=== PATIENT | female | born 1990 | race Caucasian/White ===

== ENCOUNTER 2017-07-26 08:00 | Outpatient (CLI) | payer MEDICAID ==
[2017-07-26 12:38] LABS: BASOPHILS # (AUTO) 0.1 10^3/uL (0.0-0.1); BASOPHILS % (AUTO) 0.8 %; EOSINOPHILS # (AUTO) 0.3 10^3/uL (0.0-0.7); EOSINOPHILS % (AUTO) 3.1 %; HGB - HEMOGLOBIN 12.9 g/dL (12.0-16.0); LYMPHOCYTES # (AUTO) 2.7 10^3/uL (1.5-3.5); LYMPHOCYTES % (AUTO) 25.4 %; MEAN CORPUSCULAR HEMOGLOBIN 30.4 pg (27.0-31.0); MEAN CORPUSCULAR HGB CONC 34.3 g/dL (32.0-36.0); MEAN CORPUSCULAR VOLUME 88.5 fL (81.0-99.0); MEAN PLATELET VOLUME 8.2 fL (7.9-10.8); MONOCYTES # (AUTO) 0.5 10^3/uL (0.0-1.0); MONOCYTES % (AUTO) 4.6 %; NEUTROPHILS # (AUTO) 6.9 10^3/uL (1.5-6.6); NEUTROPHILS % (AUTO) 66.1 %; PLT - PLATELET COUNT 367 10^3/uL (130-450); RED BLOOD COUNT 4.25 10^6/uL (4.20-5.40); RED CELL DISTRIBUTION WIDTH 12.2 % (12.0-15.0); WHITE BLOOD COUNT 10.5 x10^3/uL (4.8-10.8)
[2017-07-26 13:00] LABS: ALBUMIN 3.9 g/dL (3.2-5.5); ALBUMIN/GLOBULIN RATIO 1.1 (1.0-2.2); ALKALINE PHOSPHATASE 47 IU/L (42-121); ALT ALANINE AMINOTRANSFERASE 44 IU/L (10-60); AST ASPARTATE AMINOTRANSFERASE 38 IU/L (10-42); BILIRUBIN,TOTAL 0.6 mg/dL (0.2-1.0); BUN - BLOOD UREA NITROGEN 15 mg/dL (6-20); CALCIUM 9.2 mg/dL (8.5-10.3); CARBON DIOXIDE - CO2 25 mmol/L (21-32); CHLORIDE 104 mmol/L (101-111); CHOL/HDL RATIO 3.4 (<4.4); CHOLESTEROL 181 mg/dL; CREATININE 0.8 mg/dL (0.4-1.0); GFR - MDRD 86 (>89); GLUCOSE 126 mg/dL (70-100); HDL CHOLESTEROL 54 mg/dL; LDL CHOLESTEROL,CALCULATED 113 mg/dL; LDL/HDL RATIO 2.1 (<4.4); SODIUM 139 mmol/L (135-145); TOTAL PROTEIN 7.5 g/dL (6.7-8.2); VLDL CHOLESTEROL 14 mg/dL
[2017-07-26 13:04] LABS: THYROID STIMULATING HORMONE 2.7 uIU/mL (0.34-5.60)
[2017-07-26 13:32] LABS: FOLLICLE STIMULATING HORMONE 4.93 mIU/mL
[2017-07-26 13:33] LABS: LUTEINIZING HORMONE 5.76 mIU/mL
[2017-07-26 14:16] LABS: HCG,QUALITATIVE BLOOD NEGATIVE
== END 2017-07-26 08:01 | disposition home or self-care (01) ==
LOC: LAB.N 08:00
PROVIDERS: ATTEND Nurse Practitioner Gerontology
DX: Z13.9 Encounter for screening, unspecified (principal); N91.2 Amenorrhea, unspecified
CPT/HCPCS: 36415; 80053; 80061; 82670; 83001; 83002; 84443; 84703; 85025

== ENCOUNTER 2017-09-06 08:00 | Outpatient (CLI) | payer MEDICAID ==
[2017-09-06 12:54] LABS: THYROID STIMULATING HORMONE 3.87 uIU/mL (0.34-5.60)
[2017-09-06 13:00] LABS: PROLACTIN 13.9 ng/mL
[2017-09-06 13:14] LABS: HB2 TOTAL 14.1 g/dL; HEMOGLOBIN A1C 0.59 g/dL
== END 2017-09-06 08:01 | disposition home or self-care (01) ==
LOC: LAB.N 08:00
PROVIDERS: ATTEND Obstetrics & Gynecology
DX: N91.2 Amenorrhea, unspecified (principal)
CPT/HCPCS: 36415; 82626; 82947; 83036; 84146; 84443; 84702

== ENCOUNTER 2017-09-15 18:52 | Outpatient (CLI) | payer MEDICAID ==
--- NOTE | 2017-09-16 11:08 | Ultrasound Report ---
PELVIC ULTRASOUND: 09/15/2017 CLINICAL INDICATION: Leiomyoma. COMPARISON: 04/20/2016. TECHNIQUE: Transabdominal pelvic ultrasound performed for global evaluation. Transvaginal pelvic ultrasound performed for detailed evaluation. Real-time scanning performed and static images obtained. FINDINGS: The uterus is anteverted, measuring 11.1 x 5.7 x 4.2 cm. The endometrial echo complex measures 13 mm. No focal myometrial lesion is seen. The ovaries are normal, with the right measuring 3.2 x 2.1 x 2.0 cm and the left measuring 2.8 x 2.7 x 1.7 cm. No free fluid is present. IMPRESSION: INTERVAL REMOVAL OF IUD FROM PREVIOUS PELVIC ULTRASOUND OF 2015. NO LEIOMYOMAS IDENTIFIED. NORMAL PELVIC ULTRASOUND. TD: 09/16/2017 11:07 [email or web address]
== END 2017-09-15 18:53 | disposition home or self-care (01) ==
LOC: DI 18:52
PROVIDERS: ATTEND Obstetrics & Gynecology
DX: D25.9 Leiomyoma of uterus, unspecified (principal)
CPT/HCPCS: 76830; 76856

== ENCOUNTER 2017-09-29 13:55 | Outpatient (CLI) | payer MEDICAID | END 2017-09-29 13:56 | disposition home or self-care (01) | LOC: LAB.N 13:55 | PROVIDERS: ATTEND Obstetrics & Gynecology | DX: N91.2 Amenorrhea, unspecified (principal) | CPT/HCPCS: 36415; 83001; 84403 ==

== ENCOUNTER 2018-09-15 13:00 | Emergency (ER) | payer OTHER, MEDICAID ==
[2018-09-15 13:20] VITALS: BP 134/90
--- NOTE | 2018-09-15 13:25 | ED Physician Documentation ---
History of Present Illness - Stated complaint Stated Complaint: R HAND INJ - Chief complaint Chief Complaint: Ext Problem - History obtained from History obtained from: Patient - History of Present Illness Timing: How many days ago (2) Pain level max: 5 Pain level now: 4 - Additonal information Additional information: 19-year-old female with right hand and thumb pain for the past 2 days. No known injury. She states she does work 2 jobs. 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 She does not recall any injury, other than a just started hurting. Has not taken anything for the pain. Better with rest and worse with movement and twisting. She is left-handed. 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 - Present Medications Home Medications: Ambulatory Orders Medication Instructions Recorded Confirmed No Known Home Medications 09/15/18 09/15/18 - Allergies Allergies/Adverse Reactions: Allergies Allergy/AdvReac Type Severity Reaction Status Date / Time No Known Drug Allergies Allergy Verified 03/18/16 16:13 - Social History Does the pt smoke?: Yes Smoking Status: Current every day smoker Does the pt drink ETOH?: No Does the pt have substance abuse?: No - Immunizations Immunizations are current?: No Immunizations: TDAP current <10years PD ED PE NORMAL - Vitals Vital signs reviewed: Yes - General General: Alert and oriented X 3, No acute distress - Derm Derm: Warm and dry - Extremities Extremities: Other (Right hand, wrist and forearm - Full range of motion present without pain, Except for extension of the thumb. Neurovascular intact. No tenderness on examination. No swelling. No bruising.) - Neuro Neuro: Alert and oriented X 3 Results - Vitals Vitals: Vital Signs - 24 hr 09/15/18 13:19 Temperature 36.3 C L Heart Rate 94 Respiratory 16 Rate Blood Pressure 134/90 H O2 Saturation 99 Oxygen O2 Source Room air PD MEDICAL DECISION MAKING - ED course Complexity details: considered differential, d/w patient ED course: 19-year-old female with what appears to be a strain of the right hand, likely the right thumb. No bony tenderness. No evidence of fracture, dislocation, carpal tunnel syndrome. Neurovascularly intact. Placed in a Velcro thumb spica splint for comfort. Patient counseled regarding signs and symptoms for which I believe and urgent re-evaluation would be necessary. Patient with good understanding of and agreement to plan and is comfortable going home at this time This document was made in part using voice recognition software. While efforts are made to proofread this document, sound alike and grammatical errors may occur. Departure - Departure Disposition: 01 Home, Self Care Clinical Impression: Strain of thumb, right Condition: Good Instructions: ED Strain Muscle Ext Follow-Up: Keila Eller ARNP [Primary Care Provider] - Within 1 week Comments: Wear the splint for the next week. Follow-up with your doctor for repeat evaluation in a week. You can use Motrin or Tylenol as needed for pain. Forms: Activity restrictions
== END 2018-09-15 13:40 | disposition home or self-care (01) ==
LOC: ED 13:00
DX: S66.911A Strain of unspecified muscle, fascia and tendon at wrist and hand level, right hand, initial encounter (principal); X58.XXXA Exposure to other specified factors, initial encounter; Y93.F9 Activity, other caregiving; Y99.0 Civilian activity done for income or pay; F17.200 Nicotine dependence, unspecified, uncomplicated
CPT/HCPCS: 99282; 99283

== ENCOUNTER 2018-10-17 08:34 | Outpatient (CLI) | payer MEDICAID ==
[2018-10-17 09:50] LABS: HB2 TOTAL 13.3 g/dL; HEMOGLOBIN A1C 0.68 g/dL; HEMOGLOBIN A1C % 6.8 % (4.6-6.2)
== END 2018-10-17 08:35 | disposition home or self-care (01) ==
LOC: LAB 08:34
PROVIDERS: ATTEND Nurse Practitioner Obstetrics & Gynecology
DX: E66.9 Obesity, unspecified (principal); N91.2 Amenorrhea, unspecified
CPT/HCPCS: 36415; 82951; 83036; 84443

== ENCOUNTER 2018-10-24 07:08 | Outpatient (CLI) | payer MEDICAID ==
--- NOTE | 2018-10-24 12:48 | Ultrasound Report ---
Reason: AMENORRHEA Procedure Date: 10/24/2018 Accession Number: [id number] / [id number] Procedure: US - Pelvic w/Transvaginal CPT Code: FULL RESULT: EXAM: PELVIC ULTRASOUND EXAM DATE: 10/24/2018 07:17 AM. CLINICAL HISTORY: Amenorrhea. COMPARISON: PELVIC W/TRANSVAGINAL 09/15/2017 7:03 PM. TECHNIQUE: Realtime transabdominal pelvic scan performed to identify the uterus and adnexa and as an overview of other pelvic structures, followed by transvaginal scan to provide greater detail of the uterus and adnexa, with static image documentation. FINDINGS: Uterus: 11.8 x 4.2 x 6.5 cm, volume 168.5 cc. Anteverted position. Normal overall size and echotexture. Masses: None. Endometrium: 15 mm. Upper limits of normal in thickness. Cervix: Unremarkable. Right Ovary: 3.5 x 2.4 x 2.2 cm, volume 9.7 cc. Normal echotexture and blood flow. Left Ovary: 3.4 x 2.1 x 1.5 cm, volume 5.6 cc. Left ovary is only seen transabdominally. Normal echotexture and blood flow. Free Fluid: None. Other: None. IMPRESSION: Endometrial stripe thickness is at upper limits of normal at 15 mm (presumed secretory phase). Otherwise normal pelvic ultrasound. RADIA
== END 2018-10-24 07:09 | disposition home or self-care (01) ==
LOC: DI 07:08
PROVIDERS: ATTEND Nurse Practitioner Obstetrics & Gynecology
DX: N91.2 Amenorrhea, unspecified (principal)
CPT/HCPCS: 76830; 76856

== ENCOUNTER 2019-06-30 22:06 | Emergency (ER) | payer MEDICAID ==
--- NOTE | 2019-06-30 23:30 | ED Physician Documentation ---
History of Present Illness - Stated complaint Stated Complaint: R WRIST/ARM PX - Chief complaint Chief Complaint: Ext Problem - History obtained from History obtained from: Patient - History of Present Illness Timing: How many weeks ago (a few weeks, per patient) Pain level now: 3 Improved by: rest Worsened by: movement, particularly pronation - Additonal information Additional information: c/o few weeks of gradual onset right wrist pain radiating to hand (all fingers) and up forearm. worse with movement. denies injury. evaluated for similar symptoms in September in this ED. patient is left hand dominant. Review of Systems Skin: denies: Rash Musculoskeletal: reports: Extremity pain, Joint pain. 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 - Present Medications Home Medications: Ambulatory Orders Medication Instructions Recorded Confirmed Naproxen 500 mg PO BID PRN #20 tablet 06/30/19 - Allergies Allergies/Adverse Reactions: Allergies Allergy/AdvReac Type Severity Reaction Status Date / Time No Known Drug Allergies Allergy Verified 06/30/19 22:12 - Social History Does the pt smoke?: Yes Smoking Status: Current every day smoker Does the pt drink ETOH?: No Does the pt have substance abuse?: No - Immunizations Immunizations are current?: Yes Immunizations: TDAP current <10years - POLST Patient has POLST: No PD ED PE NORMAL - Vitals Vital signs reviewed: Yes - General General: Alert and oriented X 3, No acute distress, Well developed/nourished - Derm Derm: Normal color, No rash - Extremities Extremities: No tenderness to palpate, No edema - Neuro Neuro: No motor deficit, No sensory deficit PD ED PE EXPANDED - Extremities Extremities: No: Tenderness, Limited ROM (ROM intact but pain elicited with supination right FA.), Swelling Results - Vitals Vitals: Oxygen O2 Source Room air - Labs Labs: Laboratory Tests 07/01/19 00:00 POC Whole Bld Glucose 104 H PD MEDICAL DECISION MAKING - ED course Complexity details: considered differential, d/w patient ED course: No injury. Suspect overuse/tendonitis. Distribution of symptoms does not suggest carpal tunnel syndrome. Plan is analgesics and rest. She still has splint from ED visit earlier this year and I encouraged her to use it while taking time off from work to see if these measures result in improvement (which would support the diagnosis of overuse and/or tendonitis), and also to follow up with PMD Departure - Departure Disposition: 01 Home, Self Care Clinical Impression: Wrist strain Condition: Good Instructions: Tendonitis and Tenosynovitis Follow-Up: Keila Eller ARNP [Primary Care Provider] - Prescriptions: Naproxen 500 mg PO BID PRN #20 tablet PRN Reason: Pain Forms: Activity restrictions Discharge Date/Time: 07/01/19 00:22
[2019-06-30] MEDS ORDERED: NAPROXEN 250 MG TABLET PO STA (23:47)
[2019-07-01 00:22] VITALS: BP 146/104
== END 2019-07-01 00:22 | disposition home or self-care (01) ==
LOC: ED 22:06
DX: S66.911A Strain of unspecified muscle, fascia and tendon at wrist and hand level, right hand, initial encounter (principal); X58.XXXA Exposure to other specified factors, initial encounter; E11.9 Type 2 diabetes mellitus without complications; F17.200 Nicotine dependence, unspecified, uncomplicated
CPT/HCPCS: 99282; 99283; A9270

== ENCOUNTER 2019-07-05 11:15 | Outpatient (CLI) | payer MEDICAID ==
[2019-07-05 19:08] LABS: HB2 TOTAL 11.8 g/dL; HEMOGLOBIN A1C 0.62 g/dL
== END 2019-07-05 23:59 | disposition home or self-care (01) ==
LOC: LAB.N 11:15
PROVIDERS: ATTEND Nurse Practitioner Gerontology
DX: E11.65 Type 2 diabetes mellitus with hyperglycemia (principal)
CPT/HCPCS: 36415; 83036

== ENCOUNTER 2022-06-23 11:09 | Outpatient (CLI) | payer BC ==
[2022-06-23 11:34] LABS: HCT - HEMATOCRIT 36.1 % (37.0-47.0); HGB - HEMOGLOBIN 11.5 g/dL (12.0-16.0); MEAN CORPUSCULAR HEMOGLOBIN 26.7 pg (27.0-31.0); MEAN CORPUSCULAR HGB CONC 31.9 g/dL (32.0-36.0); MEAN CORPUSCULAR VOLUME 83.8 fL (81.0-99.0); MEAN PLATELET VOLUME 9.6 fL (7.9-10.8); RED BLOOD COUNT 4.31 10^6/uL (4.20-5.40); RED CELL DISTRIBUTION WIDTH 12.8 % (12.0-15.0); WHITE BLOOD COUNT 12.8 x10^3/uL (4.8-10.8)
[2022-06-23 12:02] LABS: THYROID STIMULATING HORMONE 1.39 uIU/mL (0.34-5.60)
[2022-06-23 12:08] LABS: FERRITIN 22.8 ng/mL (11.0-306.8)
[2022-06-23 13:22] LABS: ESTIMATED AVERAGE GLUCOSE 226 mg/dL (70-100); HEMOGLOBIN A1c% 9.5 % (4.27-6.07)
== END 2022-06-23 11:10 | disposition home or self-care (01) ==
LOC: LAB 11:09
PROVIDERS: ATTEND Nurse Practitioner
DX: N93.9 Abnormal uterine and vaginal bleeding, unspecified (principal)
CPT/HCPCS: 36415; 82728; 83036; 84443; 85027